=== PATIENT | female | born 1985 | race American Indian/Alaskan Native ===

== ENCOUNTER 2016-09-21 08:58 | Emergency (ER) | payer OTHER ==
[2016-09-21 09:38] VITALS: BP 107/72
--- NOTE | 2016-09-21 10:58 | Emergency Department Report ---
ED Back Pain/Injury HPI - General Chief Complaint: Back Pain/Injury Stated Complaint: BACK PAIN Time Seen by Provider: 09/21/16 10:50 Source: patient Limitations: No Limitations - History of Present Illness Initial Comments: Pt reports back pain, worse with movement, improved with rest x 5 days. No injury. No abdominal pain, n/v, dysuria, bowel/bladder dysfunction, IVDU, fevers. LMP 08/24. Hx of same. MD Complaint: back pain -: Gradual, days(s) (5) Similar Symptoms Previously: Yes Place: work Radiation: none Severity: moderate Severity scale (0 -10): 6 Quality: aching Consistency: constant Improves With: immobilization Worsens With: movement Associated Symptoms: denies other symptoms - Related Data Previous Rx's Medication Instructions Recorded Last Taken Type Cyclobenzaprine [Flexeril] 10 mg PO TID PRN #15 tablet 09/21/16 Unknown Rx Naproxen [Naprosyn] 500 mg PO BID #20 tablet 09/21/16 Unknown Rx Allergies Allergy/AdvReac Type Severity Reaction Status Date / Time No Known Allergies Allergy Verified 07/11/15 12:43 ED Review of Systems ROS: Stated complaint: BACK PAIN Other details as noted in HPI Comment: All other systems reviewed and negative Constitutional: denies: chills, fever Eyes: denies: eye pain, eye discharge, vision change ENT: denies: ear pain, throat pain Respiratory: denies: cough, shortness of breath, wheezing Cardiovascular: denies: chest pain, palpitations Endocrine: no symptoms reported Gastrointestinal: denies: abdominal pain, nausea, diarrhea Genitourinary: denies: urgency, dysuria, discharge Musculoskeletal: back pain. denies: joint swelling, arthralgia Skin: denies: rash, lesions Neurological: denies: headache, weakness, paresthesias Psychiatric: denies: anxiety, depression Hematological/Lymphatic: denies: easy bleeding, easy bruising ED Back Pain Physical Exam - Exam General: Vital signs noted. No distress. Alert and acting appropriately. Heart RRR, lungs CTAB, abdomen SNTND. Back/Abdomen: Yes Perithoracic Tenderness, Yes Perilumbar Tenderness, No Abdominal Tenderness, No Sacroiliac Tenderness, No Flank Tenderness, No Straight Leg Raise Pain Neuro: Yes Normal Sensation, Yes Normal DTR's, Yes Normal Gait, No Motor Weakness ED Course Vital Signs 09/21/16 09:33 Temperature 98.1 F Pulse Rate 113 H Respiratory 20 Rate Blood Pressure 107/72 O2 Sat by Pulse 99 Oximetry - Reevaluation(s) Reevaluation #1: 09/21/16 10:55 NAD, stable for d/c. ED Medical Decision Making - Medical Decision Making Pt with reproducible muscular back pain. Will give meds and have her follow up - Differential Diagnosis back strain, spasms, sciatica Critical care attestation.: If time is entered above; I have spent that time in minutes in the direct care of this critically ill patient, excluding procedure time. ED Disposition Clinical Impression: Back strain Qualifiers: Encounter type: initial encounter Qualified Code(s): S39.012A - Strain of muscle, fascia and tendon of lower back, initial encounter Disposition: DISCHARGED TO HOME OR SELFCARE Is pt being admited?: No Condition: Stable Instructions: Muscle Strain (ED) Prescriptions: Cyclobenzaprine [Flexeril] 10 mg PO TID PRN #15 tablet PRN Reason: Muscle Spasm Naproxen [Naprosyn] 500 mg PO BID #20 tablet Referrals: PRIMARY CARE, [Primary Care Provider] - 3-5 Days JOANIE CORTEZ MD [Staff Physician] - 3-5 Days Time of Disposition: 10:57
== END 2016-09-21 11:10 | disposition home or self-care (01) ==
LOC: ED 08:58
DX: S39.012A Strain of muscle, fascia and tendon of lower back, initial encounter (principal); X58.XXXA Exposure to other specified factors, initial encounter; Y93.89 Activity, other specified; Y99.9 Unspecified external cause status; Y92.89 Other specified places as the place of occurrence of the external cause
CPT/HCPCS: 99282